=== PATIENT | female | born 1990 | race Caucasian/White ===

== ENCOUNTER 2017-03-17 21:18 | Emergency (ER) | payer OTHER ==
[~2017-03-17] VITALS: Ht 162.6 cm; Wt 68.2 kg
[~2017-03-17 21:18] MED LIST: PREN-100 PO
[2017-03-17 21:39] VITALS: BP 136/82; RESP 18; O2SAT 100
--- NOTE | 2017-03-17 22:37 | ED.REPORT ---
HPI-Facial Injury Date of Service Mar 17, 2017 ED Provider: Dr. Aldridge 26 y/o female with no pertinent hx presents to the ED complaining of nose laceration, just prior to arrival. The pt was "head butted" in the nose by her dog. Associated sx include bleeding at the injury and lightheadedness (now resolved). She denies LOC. The pt also states "Lately, I've been lightheaded and today got weak and got really cold". Nursing Notes Stated Complaint: NOSE PAIN Chief Complaint: ENT & Mouth Nursing Notes Reviewed: Yes Allergies: Coded Allergies: No Known Allergies (Verified Allergy, Unknown, 03/17/17) Scheduled PRN Ibuprofen (Ibuprofen) 800 Mg Tablet 800 MG PO TID PRN PRN For Pain Miscellaneous Medications Vits -Expunged Drug, Do Not Renew! ( Formula-Expunged Drug, Do Not Renew!) 1 Each Tablet 1 EACH PO General Time Seen by Provider: 22:45 Chief Complaint Laceration (right side nose) Hx Obtained From: Patient Onset Occurred: Just prior to arrival Symptom Duration: Since onset Location: : Nose Quality: Painful Severity: Current: Moderate Severity: Maximum: Severe Recent Healthcare: No recent doctor visit Similar Sx Previous: No Past Medical History Past Medical History Notes: PCP: Dr. Trotter Past Medical History denies Past Surgical History denies Family History Reports: Coronary artery disease, Diabetes mellitus, Hypertension Reports: Cancer Smoking History Never Smoker Social History Alcohol Use: Denies alcohol use Drug Use: THC Other Social History: Good social support, Local resident Ambulatory Status Independent Review of Systems Ears / Nose / Throat: Reports: Nose bleeding (at the laceration ) Neurologic: Reports: Lightheaded (now resolved) Complete sys rev & neg: except as marked. Physical Exam Initial Vital Signs Vital Signs (First) Date Time Temp Pulse Resp B/P Pulse Ox O2 Delivery O2 Flow Rate FiO2 03/17/17 21:39 36.2 76 18 136/82 100 Room Air Initial VS: Reviewed, Vital signs normal Respiratory: Breath sounds normal, Clear to auscultation, No respiratory distress Cardiovascular: Regular rate & rhythm, Heart sounds normal, Intact distal pulses Abdomen / GI: Soft, Non-tender Extremities: Vascular intact, Neuro intact, No swelling, No tenderness Skin: Warm, Dry, No cyanosis Head / Eyes: Atraumatic, Normocephalic, PERRL ENT: No facial swelling Half centimeter linear superficial laceration to right side of the nose. Neck: Atraumatic, Supple, Full range of motion Neurologic: Oriented X3, Speech NL, No motor deficits, No sensory deficits General/Constitutional: Awake, Alert, Cooperative Interpretation & Diagnostics X-Ray Interpretation Xray Interpretation: No obvious displacement. Study Performed: Nose X-ray Interpretation / Wet Read by: Wet read ED physician Procedures Laceration management: Dermabond applied on the laceration. Re-Eval/Medical Decision Re-Evaluation/Progress : Time of Eval: 23:55 Patient Status: Condition improved Re-Evaluation/Progress Note: Rechecked pt. Discussed lab, imaging results and diagnosis. Informed the pt of the plan to discharge. Pt understands and agrees with plan. F/U instructions and RTER warning given. All questions addressed. Counseled Regarding: Diagnosis, Lab results, Need for follow-up, When/why to return to ED Discharge & Departure Impression: Primary Impression: Laceration of nose Disposition: Home Discharge Condition All VS Reviewed: Yes Condition: Stable Additional Instructions: Thank you for entrusting us with your care today. Your X-ray is reassuring. You have no fracture. Use ibuprofen for pain. Urinary as well as supraglenoid and does not require any further intervention unless it begins to look infected. Follow-up with ear nose and throat as needed Follow up with your primary care provider as required. The ER is always available for any concerns such as fever, persistent altered mental status, or other concerns. Referrals: Ruthann Chin (PCP) Marcus Morillo MD Attestation Portions of this note were transcribed by Nile Maldonado. I, , personally performed the history, physical exam and medical decision-making;I reviewed and confirmed the accuracy of the information in the transcribed note. Signed by Riley Callahan. 03/17/17 23:49 copies to: Ruthann Chin; Marcus Morillo MDGuanaco Bolanos Mar 17, 2017 22:37 Nile Maldonado Mar 17, 2017 22:50
[2017-03-17] MEDS ORDERED: Tissue Adhesive Liq (CS Supplied) TOPICAL ONE (23:45)
[2017-03-18] MEDS ORDERED: IBUP800T28 PO
--- NOTE | 2017-03-18 08:09 | DRSVH ---
PROCEDURE: X-RAY NASAL BONES, MINIMUM THREE VIEWS ([id number]) INDICATIONS: nasal injury TECHNIQUE: 3 views of the nasal bones acquired. COMPARISON: None. FINDINGS: Bones: No fractures or dislocations. Nasal septum is midline. Normal nasociliary nerve grooves are noted. Soft tissues: No suspicious soft tissue calcifications. IMPRESSION: No visible fractures. No significant discrepancy with the ER preliminary report. Dictated by: Annabelle Sullivan M.D. on 03/18/2017 at 8:06 Approved by: Annabelle Sullivan M.D. on 03/18/2017 at 8:07
== END 2017-03-18 00:47 | disposition home or self-care (01) ==
LOC: SED 21:18
DX: S01.21XA Laceration without foreign body of nose, initial encounter (principal); R42 Dizziness and giddiness; W54.1XXA Struck by dog, initial encounter; Y92.9 Unspecified place or not applicable; Y99.8 Other external cause status; Y93.89 Activity, other specified